=== PATIENT | female | born 1980 | race African-American/Black ===

== ENCOUNTER 2016-10-06 22:45 | Emergency (ER) | payer MEDICARE, MEDICAID ==
[2016-10-06] MEDS ORDERED: Haloperidol Lactate 5 mg/mL 1mL Vial ONE (22:49)
[2016-10-06] MEDS: Haloperidol Lactate 5 mg/mL 1mL Vial IVP ONE (23:00)
[2016-10-06 23:32] LABS: % EOSINOPHILS 0.7 % (0.0-5.0)
[2016-10-06 23:53] LABS: ALB/GLOB RATIO 1.2 (1.0-1.8); ALKALINE PHOSPHATASE 74 U/L (34-104); ANION GAP 7.8 (7.0-16.0); BILIRUBIN,TOTAL 0.4 mg/dL (0.3-1.0); BUN - UREA NITROGEN 6 mg/dL (7-25); BUN/CREATININE RATIO 6.7; CARBON DIOXIDE 24.3 mEq/L (21.0-31.0); CHLORIDE 105 mEq/L (98-107); CREATININE - SERUM 0.9 mg/dL (0.6-1.2); GLUCOSE 101 mg/dL (70-105); INR 0.97 (0.5-1.4); POTASSIUM SERUM 3.1 mEq/L (3.5-5.1); PROTHROMBIN TIME (TEST) 10.1 SECONDS (9.5-11.5); SGOT 14 U/L (13-39); SGPT/ALT 9 U/L (7-52); SODIUM SERUM 134 mEq/L (136-145)
[2016-10-06 23:54] LABS: CHOLESTEROL 108 mg/dL (<200); TRIGLYCERIDES 67 mg/dL (<150)
[2016-10-07 00:01] LABS: % BASOPHILS 0.7 % (0.0-2.0); % LYMPHOCYTES 13.7 % (20.0-50.0); % MONOCYTES 7.2 % (2.0-10.0); % NEUTROPHILS 77.7 % (40.0-80.0); HEMATOCRIT 27.7 % (35.0-45.0); HEMOGLOBIN 8.7 gm/dL (11.7-15.5); MEAN CORPUSCULAR HEMOGLOBIN 20.4 pg (27.0-31.0); MEAN CORPUSCULAR HGB CONC 31.5 pg (28.0-36.0); MEAN PLATELET VOLUME 7.5 fl; NEUTROPHILE ABSOLUTE 10.6 Th/cmm (1.8-8.0); PLATELET COUNT 549 Th/cmm (150-400); RED BLOOD COUNT 4.29 Mil/cmm (3.80-5.10); RED CELL DISTRIBUTION WIDTH 27.3 % (11.5-20.0)
[2016-10-07 00:03] LABS: WHITE BLOOD COUNT 13.7 Th/cmm (4.8-10.8)
--- NOTE | 2016-10-07 00:19 | ED Physician Chart ---
Chief Complaint/HPI - Patient Information Date Seen:: 10/06/16 Time Seen:: 22:48 Chief Complaint:: COMBATIVE History of Present Illness:: THIS IS A 40 YR OLD BLACK FEMALE BIB EMS FROM AN EATING ESTABLISHMENT THIS PM BY THE EMS IN FULL RESTRAINTS SCREAMING LOUD PROFANITY. SHE IS VERY UNCOOPERATIVE AND NO HISTORY AND REVIEW OF SYSTEMS BE OBTAINED. Vitals:: Vital Signs - 8 hr 10/06/16 22:45 Temp 98.4 F HR 86 RR 20 BP 125/74 O2 Sat % 99 Historian:: EMS Review:: Nurse's Note Reviewed Review of Systems - Review of Systems General/Constitutional: No fever, No chills, No weight loss, No weakness, No diaphoresis, No edema, No loss of appetite Skin: No skin lesions, No rash, No bruising Head: No headache, No light-headedness Eyes: No loss of vision, No pain, No diplopia ENT: No earache, No nasal drainage, No sore throat, No tinnitus Neck: No neck pain, No swelling, No thyromegaly, No stiffness, No mass noted Cardio Vascular: No chest pain, No palpitations, No PND, No orthopnea, No edema Pulmonary: No SOB, No cough, No sputum, No wheezing GI: No nausea, No vomiting, No diarrhea, No pain, No melena, No hematochezia, No constipation, No hematemesis G/U: No dysuria, No frequency, No hematuria Musculoskeletal: No bone or joint pain, No back pain, No muscle pain Endocrine: No polyuria, No polydipsia Psychiatric: No prior psych history, No depression, No anxiety, No suicidal ideation Hematopoietic: No bruising, No lymphadenopathy Allergic/Immuno: No urticaria, No angioedema Neurological: No syncope, No focal symptoms, No weakness, No paresthesia, No headache, No seizure, No dizziness, No confusion, No vertigo Past Medical History - Past Medical History Obtainable: No Social History: Smoker, No Alcohol, No Drug Use Surgical History: None Psychiatricy History: Dementia Medication: Reviewed Family Medical History - Family Member Mother History Unknown: Yes Labs/Radiology/EKG Results - Lab Results Results: Laboratory Tests 10/06/16 10/06/16 10/06/16 23:20 23:20 23:20 WBC 13.7 H RBC 4.29 Hgb 8.7 L Hct 27.7 L MCH 20.4 L MCHC Differential 31.5 RDW 27.3 H Plt Count 549 H MPV 7.5 Neutrophils % 77.7 Lymphocytes % 13.7 L Monocytes % 7.2 Eosinophils % 0.7 Basophils % 0.7 Troponin I < 0.01 L Triglycerides 67 Cholesterol 108 LDL Cholesterol Direct 65 L HDL Cholesterol 35 ED Septic Shock - . Is Septic Shock (SBP<90, OR Lactate>4 mmol\L) present?: No - <6hrs of presentation: Vital Signs: Vital Signs - 8 hr /05/13 22:45 Temp 98.4 F HR 86 RR 20 BP 125/74 O2 Sat % 99 Reassessment (Disposition) - Reassessment Reassessment Condition:: Improved - Aftercare/Follow up Instructions Aftercare/Follow-Up Instructions:: Counseled pt regarding lab results/diagnosis & need follow up, Refer to Discharge Instructions, Counseled pt & family regarding lab results/diagnosis & need follow up - Patient Disposition Discharge/Transfer:: Home Condition at Disposition:: Improved ED Discharge Plan - Patient Disposition Admit/Discharge/Transfer: PT DISCHARGED HOME Condition at Disposition: Improved
[2016-10-07 00:56] LABS: MEAN CELL VOLUME 64.5 fl (81-100)
[2016-10-07 01:05] VITALS: BP 130/86
[2016-10-07] MEDS ORDERED: KCL 20mEq/100mL Premix 20 MEQ/100 ML PIGGYBACK IV ONE (01:35)
[2016-10-07] MEDS: Sodium Chloride 0.9% 1,000 ML IV ONE (01:39)
[2016-10-07] MEDS: cefTRIAXone 1 GM in Sodium Chloride 0.9% 50 ML IV ONE (01:41)
[2016-10-07] MEDS: KCL 20mEq/100mL Premix 20 MEQ/100 ML PIGGYBACK IV ONE (01:43)
[2016-10-07] MEDS: Sodium Chloride 0.45% 1,000 ML IV ONE (03:03)
== END 2016-10-07 08:15 | disposition home or self-care (01) ==
LOC: EDBD 22:45 → ER 22:45
DX: F91.9 Conduct disorder, unspecified (principal); F03.90 Unspecified dementia, unspecified severity, without behavioral disturbance, psychotic disturbance, mood disturbance, and anxiety; F17.200 Nicotine dependence, unspecified, uncomplicated
CPT/HCPCS: 99285; 96365; 96375; 96376; 84484; 36415; 83605; 84443; 86592; 85025; 85610; 80320; 80053; 80061; 87040 ×2; J2060 ×2; J3480; J0696; J1630; J7030